=== PATIENT | male | born 1985 | race American Indian/Alaskan Native ===

== ENCOUNTER 2019-09-13 14:21 | Inpatient (IN) | payer MEDICAID ==
[2019-09-13] MEDS ORDERED: Acetaminophen 325 MG Tab PO PRN (16:37)
[2019-09-13] MEDS ORDERED: Sodium Chloride 0.9% 10 ML Syringe FLUSH PRN (16:37)
[2019-09-13] MEDS: Potassium Chloride 10 MEQ Tab.ER PO SCH (18:31)
[2019-09-13] MEDS: Enoxaparin 40 MG/0.4 ML Syringe SUBCUT SCH (18:31)
[2019-09-13] MEDS: Meropenem 1 GM SDV IVPUSH SCH (18:32)
--- NOTE | 2019-09-13 19:29 | PCM.HP.2 ---
H&P History of Present Illness - General Date of Service: 09/13/19 Admit Problem/Dx: Admission Diagnosis/Problem Admission Diagnosis/Problem Bacteremia Source of Information: Patient, Old Records History Limitations: Reports: No Limitations - History of Present Illness Initial Comments - Free Text/Narative: Pt transferred here from [facility] to [facility] for continued IV antibiotics via picc line. He was treated for pneumonia and sepsis while at [facility]. He has chronic back pain, Lupus, and Type II diabetes that he is currently on no meds for. He has open sores that have had skin grafts on the back of each leg. He states that these are from a spider bite that became infected and then abscessed and not healed. He does follow with plastic surgeon for the skin grafts. He refuses to allow me to remove these and evaluate them. He does ambulate with a cane due to his chronic back pain. Onset of Symptoms: Reports: Gradual Duration of Symptoms: Reports: Chronic Location: Reports: Chest, Lower Extremity, Left, Lower Extremity, Right - Related Data Allergies/Adverse Reactions: Allergies Allergy/AdvReac Type Severity Reaction Status Date / Time No Known Allergies Allergy Verified 09/13/19 19:27 Home Medications: Home Meds . [Unable to Verify Home Med List] 09/13/19 [History] Past Medical History HEENT History: Reports: Impaired Vision Cardiovascular History: Reports: None Respiratory History: Reports: Pneumonia, Recurrent, TB Other Respiratory History: States "I'm over the TB now.". acute respiratory failure. Gastrointestinal History: Reports: GERD, Inflammatory Bowel Disease, Other (See Below) Other Gastrointestinal History: fatty liver and enlarged liver. intestinal TB. Elevated LFT Genitourinary History: Reports: Renal Disease Musculoskeletal History: Reports: Arthritis, RA, SLE, Other (See Below) Other Musculoskeletal History: Affects legs and joints. Hard to walk. Neurological History: Reports: None Psychiatric History: Reports: Addiction Endocrine/Metabolic History: Reports: Diabetes, Type II Hematologic History: Reports: Anemia, Blood Transfusion(s) Immunologic History: Reports: Immunosuppression, Other (See Below) Other Immunologic History: Lupus Oncologic (Cancer) History: Reports: None Dermatologic History: Reports: None, Other (See Below) (Has open wounds that have had skin grafts to the back of both lower extremities.) - Infectious Disease History Infectious Disease History: Reports: Chicken Pox, TB (Has history of Intestinal TB and rspiratory TB. Was on meds for 9 months when they were discontinued due to elevated LFT's. He has had 2 clear AFB sputum cultures and needs to have 3rd here to clear completely.) - Past Surgical History Head Surgeries/Procedures: Reports: None HEENT Surgical History: Reports: None Male Surgical History: Reports: None Endocrine Surgical History: Reports: None Neurological Surgical History: Reports: None Musculoskeletal Surgical History: Reports: None Oncologic Surgical History: Reports: None Dermatological Surgical History: Reports: Skin Graft (to the back of both legs. Has had 3 total.) Social & Family History - Family History Family Medical History: Noncontributory - Tobacco Use Smoking Status *Q: Former Smoker - Caffeine Use Caffeine Use: Reports: Coffee, Soda, Tea - Living Situation & Occupation Living situation: Reports: Single, with Family (lives with sister near [place]. ) Occupation: Unemployed H&P Review of Systems - Review of Systems: Review Of Systems: See Below General: Denies: Fever, Chills HEENT: Reports: No Symptoms Pulmonary: Denies: Shortness of Breath, Cough Cardiovascular: Denies: Chest Pain Gastrointestinal: Reports: No Symptoms Genitourinary: Reports: No Symptoms Musculoskeletal: Reports: Back Pain, Joint Pain, Muscle Stiffness Skin: Reports: Wound (posterior legs bilaterally that he refuses to allow me to look at tonight.) Psychiatric: Reports: No Symptoms Neurological: Reports: No Symptoms Exam - Exam Exam: See Below - Vital Signs Vital Signs: Last Vital Signs Temp 98.8 F 09/13/19 16:37 Pulse 87 09/13/19 16:37 Resp 18 09/13/19 16:37 BP 98/54 L 09/13/19 16:37 Pulse Ox 99 09/13/19 16:37 Weight: 150 lb 11.2 oz - Exam Quality Assessment: No: Supplemental Oxygen General: Alert, Oriented, Cooperative HEENT: EACs Clear, Mucosa Moist & [place], Posterior Pharynx Clear Neck: Supple, Trachea Midline Lungs: Clear to Auscultation, Normal Respiratory Effort Cardiovascular: Regular Rate, Regular Rhythm GI/Abdominal Exam: Normal Bowel Sounds, Soft, Non-Tender, No Organomegaly Extremities: Normal Range of Motion, No Pedal Edema, Normal Capillary Refill, Other (dressing to posterior legs bilaterally that he refuses to take dressings off and examine.) Skin: Warm, Dry, Intact Neuro Extensive - Mental Status: Alert, Oriented x3 Psychiatric: Alert - Problem List (1) Pneumonia SNOMED Code(s): 549443439 ICD Code: J18.9 - PNEUMONIA, UNSPECIFIED ORGANISM Status: Acute Priority : High Current Visit: Yes Qualifiers: Pneumonia type: due to group B Streptococcus Laterality: bilateral Lung location: lower lobe of lung Qualified Code(s): J15.3 - Pneumonia due to streptococcus, group B (2) Elevated liver enzymes SNOMED Code(s): 688172735 ICD Code: R74.8 - ABNORMAL LEVELS OF OTHER SERUM ENZYMES Status: Chronic Priority: Medium Current Visit: Yes (3) History of systemic lupus erythematosus (SLE) SNOMED Code(s): 296555980 ICD Code: M32.9 - SYSTEMIC LUPUS ERYTHEMATOSUS, UNSPECIFIED Status: Chronic Priority: Low Current Visit: Yes (4) Low back pain SNOMED Code(s): 246187250 ICD Code: M54.5 - LOW BACK PAIN Status: Chronic Priority: Medium Current Visit: Yes Qualifiers: Chronicity: acute Back pain laterality: midline Sciatica presence: without sciatica Qualified Code(s): M54.5 - Low back pain (5) Lupus SNOMED Code(s): 721981445 ICD Code: M32.9 - SYSTEMIC LUPUS ERYTHEMATOSUS, UNSPECIFIED Status: Chronic Current Visit: Yes (6) Open wounds involving multiple regions of lower extremity SNOMED Code(s): 778589553 ICD Code: S81.809A - UNSPECIFIED OPEN WOUND, UNSPECIFIED LOWER LEG, INIT ENCNTR Status: Acute Priority: High Current Visit: Yes (7) Pulmonary TB SNOMED Code(s): 266034232 ICD Code: A15.0 - TUBERCULOSIS OF LUNG Status: Chronic Priority: Low Current Visit: Yes Problem List Initiated/Reviewed/Updated: Yes Orders Last 24hrs: Active Orders 24 hr Category Date Time Status Patient Status [ADT] Routine ADT 09/13/19 16:37 Active Up ad Yudi [RC] .PRN Care 09/13/19 16:37 Active Vital Signs [RC] 0800,2000 Care 09/13/19 16:37 Active PT Evaluation and Treatment [CONS] Routine Cons 09/13/19 16:37 Active Regular Diet [DIET] Diet 09/13/19 Dinner Active AFB STAIN WITH CULTURE Routine Lab 09/13/19 16:45 Ordered Acetaminophen [Tylenol] Med 09/13/19 16:37 Active 650 mg PO Q4H PRN Enoxaparin [Lovenox] Med 09/13/19 18:00 Active 40 mg SUBCUT Q24H Heparin Sodium [Heparin Lock Flush 100 Units/ML] Med 09/13/19 18:18 Active 300 units FLUSH ASDIRECTED PRN Meropenem [Merrem] Med 09/13/19 18:00 Active 2 gm IVPUSH Q8H Pantoprazole [ProTONIX] Med 09/14/19 07:00 Active 40 mg PO DAILY@0700 Potassium Chloride [Klor-Con 10] Med 09/13/19 17:30 Active 20 meq PO BIDMEALS Sodium Chloride 0.9% [Saline Flush] Med 09/13/19 16:37 Active 10 ml FLUSH ASDIRECTED PRN oxyCODONE Med 09/13/19 19:06 Ordered 5 mg PO Q6H PRN predniSONE Med 09/14/19 12:00 Active 20 mg PO DAILY@1200 Saline Lock Insert [OM.PC] Routine Oth 09/13/19 16:37 Ordered Resuscitation Status Routine Resus Stat 09/13/19 16:37 Ordered Medication Orders Acetaminophen (Tylenol) 650 mg PO Q4H PRN PRN Reason: Pain (Mild 1-3)/fever Enoxaparin Sodium (Lovenox) 40 mg SUBCUT Q24H [facility] Last Admin: 09/13/19 18:31 Dose: 40 mg Heparin Sodium (Porcine) (Heparin Lock Flush 100 Units/Ml) 300 units FLUSH ASDIRECTED PRN PRN Reason: flush picc line Meropenem (Merrem) 2 gm IVPUSH Q8H [facility] Stop: 09/20/19 18:01 Last Admin: 09/13/19 18:32 Dose: 2 gm Oxycodone HCl (Oxycodone) 5 mg PO Q6H PRN PRN Reason: Pain Pantoprazole Sodium (Protonix) 40 mg PO DAILY@0700 [facility] Potassium Chloride (Klor-Con 10) 20 meq PO BIDMEALS [facility] Last Admin: 09/13/19 18:31 Dose: 20 meq Prednisone (Prednisone) 20 mg PO DAILY@1200 [facility] Sodium Chloride (Saline Flush) 10 ml FLUSH ASDIRECTED PRN PRN Reason: Keep Vein Open Assessment/Plan Comment:: Pt is admitted to swing bed status for additional 7 days of IV antibiotics and dressing changes. Pt was accepted in transfer by Dr. Hopkins and he agrees with orders.
[2019-09-13] MEDS ORDERED: Ibuprofen 200 MG Tab PO PRN (19:35)
[2019-09-13] MEDS ORDERED: Temazepam 15 MG Cap PO PRN (19:37)
[2019-09-13] MEDS: oxyCODONE 5 MG Tab PO PRN (19:51)
[2019-09-13] MEDS: Cholecalciferol (Vitamin D3) 25 MCG Tab PO SCH (21:12)
[2019-09-13] MEDS: traZODone 50 MG Tab PO SCH (21:14)
[2019-09-13] MEDS: Gabapentin 300 MG Cap PO SCH (21:14)
[2019-09-14] MEDS: Meropenem 1 GM SDV IVPUSH SCH ×3 (01:40→18:09)
[2019-09-14] MEDS: Pantoprazole 40 MG Tab.CR PO SCH (06:27)
[2019-09-14] MEDS: Multivitamin Tab PO SCH (08:08)
[2019-09-14] MEDS: Sulfamethoxazole/Trimethoprim 800-160 MG Tab PO SCH (08:08)
[2019-09-14] MEDS: Magnesium Chloride 64 MG Tab.ER PO SCH ×2 (08:09→16:53)
[2019-09-14] MEDS: Gabapentin 300 MG Cap PO SCH ×3 (08:09→19:59)
[2019-09-14] MEDS: traZODone 50 MG Tab PO SCH (08:09)
[2019-09-14] MEDS: Potassium Chloride 10 MEQ Tab.ER PO SCH ×2 (08:09→16:53)
[2019-09-14] MEDS: Ferrous Sulfate 324 MG Tab.EC PO SCH (08:12)
[2019-09-14] MEDS: Ascorbic Acid 500 MG Tab PO SCH (08:12)
[2019-09-14] MEDS: oxyCODONE 5 MG Tab PO PRN ×2 (10:57→16:54)
[2019-09-14] MEDS: predniSONE 20 MG Tab PO SCH (10:59)
[2019-09-14] MEDS: Enoxaparin 40 MG/0.4 ML Syringe SUBCUT SCH (18:08)
[2019-09-14] MEDS: Cholecalciferol (Vitamin D3) 25 MCG Tab PO SCH (19:59)
[2019-09-15] MEDS: Meropenem 1 GM SDV IVPUSH SCH ×3 (02:00→17:53)
[2019-09-15] MEDS: Magnesium Chloride 64 MG Tab.ER PO SCH ×2 (08:25→17:52)
[2019-09-15] MEDS: Potassium Chloride 10 MEQ Tab.ER PO SCH ×2 (08:25→17:52)
[2019-09-15] MEDS: Pantoprazole 40 MG Tab.CR PO SCH (08:25)
[2019-09-15] MEDS: Multivitamin Tab PO SCH (08:26)
[2019-09-15] MEDS: oxyCODONE 5 MG Tab PO PRN ×2 (08:26→18:03)
[2019-09-15] MEDS: traZODone 50 MG Tab PO SCH (08:26)
[2019-09-15] MEDS: Gabapentin 300 MG Cap PO SCH ×3 (08:26→19:31)
[2019-09-15] MEDS: predniSONE 20 MG Tab PO SCH (11:59)
[2019-09-15] MEDS: Enoxaparin 40 MG/0.4 ML Syringe SUBCUT SCH (18:00)
[2019-09-15] MEDS: Cholecalciferol (Vitamin D3) 25 MCG Tab PO SCH (19:31)
[2019-09-16] MEDS: Meropenem 1 GM SDV IVPUSH SCH ×3 (02:03→17:56)
[2019-09-16] MEDS: Gabapentin 300 MG Cap PO SCH ×3 (08:15→20:25)
[2019-09-16] MEDS: Potassium Chloride 10 MEQ Tab.ER PO SCH ×2 (08:15→17:37)
[2019-09-16] MEDS: Pantoprazole 40 MG Tab.CR PO SCH (08:15)
[2019-09-16] MEDS: Multivitamin Tab PO SCH (08:16)
[2019-09-16] MEDS: Magnesium Chloride 64 MG Tab.ER PO SCH ×2 (08:16→17:38)
[2019-09-16] MEDS: traZODone 50 MG Tab PO SCH (08:16)
[2019-09-16] MEDS: oxyCODONE 5 MG Tab PO PRN ×2 (08:16→20:25)
[2019-09-16] MEDS: Ascorbic Acid 500 MG Tab PO SCH (08:20)
[2019-09-16] MEDS: Ferrous Sulfate 324 MG Tab.EC PO SCH (08:22)
[2019-09-16] MEDS: predniSONE 20 MG Tab PO SCH (11:55)
[2019-09-16] MEDS: Enoxaparin 40 MG/0.4 ML Syringe SUBCUT SCH (17:38)
[2019-09-16 19:01] LABS: CHLORIDE,CL 103 mEq/L (98-106); SODIUM,NA 137 mEq/L (136-145)
--- NOTE | 2019-09-16 19:35 | PCM.SN ---
- Free Text/Narrative Note: RN told me the patient just now told her that he had a bloody stool here on Tuesday. None today. Vitals are stable. Ordered labs. His hgb is baseline and so are rest of his labs except potassium. His potassium is elevated, stopped this until PCP redraws labs repeat.
[2019-09-16] MEDS: Cholecalciferol (Vitamin D3) 25 MCG Tab PO SCH (20:25)
[2019-09-17] MEDS: Meropenem 1 GM SDV IVPUSH SCH ×3 (01:41→17:30)
[2019-09-17] MEDS: Pantoprazole 40 MG Tab.CR PO SCH (06:49)
[2019-09-17] MEDS: Multivitamin Tab PO SCH (07:32)
[2019-09-17] MEDS: Gabapentin 300 MG Cap PO SCH ×3 (07:33→19:36)
[2019-09-17] MEDS: Magnesium Chloride 64 MG Tab.ER PO SCH ×2 (07:33→17:30)
[2019-09-17] MEDS: traZODone 50 MG Tab PO SCH (07:36)
[2019-09-17] MEDS: oxyCODONE 5 MG Tab PO PRN ×2 (07:45→19:40)
[2019-09-17] MEDS: Sulfamethoxazole/Trimethoprim 800-160 MG Tab PO SCH (08:48)
[2019-09-17] MEDS: predniSONE 20 MG Tab PO SCH (12:10)
[2019-09-17] MEDS: Enoxaparin 40 MG/0.4 ML Syringe SUBCUT SCH (17:31)
[2019-09-17] MEDS: Cholecalciferol (Vitamin D3) 25 MCG Tab PO SCH (19:36)
[2019-09-18] MEDS: Meropenem 1 GM SDV IVPUSH SCH ×3 (02:20→23:26)
[2019-09-18] MEDS: Pantoprazole 40 MG Tab.CR PO SCH (06:35)
[2019-09-18 07:51] LABS: CHLORIDE,CL 104 mEq/L (98-106); SODIUM,NA 138 mEq/L (136-145)
[2019-09-18] MEDS: Magnesium Chloride 64 MG Tab.ER PO SCH ×2 (07:55→18:40)
[2019-09-18] MEDS: Multivitamin Tab PO SCH (07:55)
[2019-09-18] MEDS: oxyCODONE 5 MG Tab PO PRN ×2 (07:56→23:28)
[2019-09-18] MEDS: Gabapentin 300 MG Cap PO SCH ×3 (07:57→23:28)
[2019-09-18] MEDS: traZODone 50 MG Tab PO SCH (07:58)
[2019-09-18] MEDS: Ascorbic Acid 500 MG Tab PO SCH (09:20)
[2019-09-18] MEDS: Ferrous Sulfate 324 MG Tab.EC PO SCH (09:20)
[2019-09-18] MEDS: predniSONE 20 MG Tab PO SCH (13:19)
[2019-09-18] MEDS: Enoxaparin 40 MG/0.4 ML Syringe SUBCUT SCH (18:40)
[2019-09-18] MEDS: Cholecalciferol (Vitamin D3) 25 MCG Tab PO SCH (23:27)
[2019-09-19] MEDS: Meropenem 1 GM SDV IVPUSH SCH ×4 (06:18→23:37)
[2019-09-19] MEDS: Pantoprazole 40 MG Tab.CR PO SCH (06:19)
[2019-09-19] MEDS: Magnesium Chloride 64 MG Tab.ER PO SCH ×2 (07:33→17:16)
[2019-09-19] MEDS: traZODone 50 MG Tab PO SCH (07:34)
[2019-09-19] MEDS: Gabapentin 300 MG Cap PO SCH ×3 (07:34→19:35)
[2019-09-19] MEDS: Multivitamin Tab PO SCH (07:34)
[2019-09-19] MEDS: Sulfamethoxazole/Trimethoprim 800-160 MG Tab PO SCH (09:03)
[2019-09-19] MEDS: oxyCODONE 5 MG Tab PO PRN ×2 (09:11→21:02)
[2019-09-19] MEDS: predniSONE 20 MG Tab PO SCH (11:21)
[2019-09-19] MEDS: Enoxaparin 40 MG/0.4 ML Syringe SUBCUT SCH (17:22)
[2019-09-19] MEDS: Cholecalciferol (Vitamin D3) 25 MCG Tab PO SCH (19:34)
[2019-09-20] MEDS: Pantoprazole 40 MG Tab.CR PO SCH (06:48)
[2019-09-20 07:38] VITALS: BP 109/58; PULSE 83
[2019-09-20] MEDS: Gabapentin 300 MG Cap PO SCH (08:03)
[2019-09-20] MEDS: Magnesium Chloride 64 MG Tab.ER PO SCH (08:03)
[2019-09-20] MEDS: Meropenem 1 GM SDV IVPUSH SCH (08:04)
[2019-09-20] MEDS: traZODone 50 MG Tab PO SCH (08:04)
[2019-09-20] MEDS: Multivitamin Tab PO SCH (08:04)
[2019-09-20] MEDS: Ascorbic Acid 500 MG Tab PO SCH (08:08)
[2019-09-20] MEDS: Ferrous Sulfate 324 MG Tab.EC PO SCH (08:08)
[2019-09-20] MEDS: oxyCODONE 5 MG Tab PO PRN (08:19)
--- NOTE | 2019-09-20 22:09 | PCM.DCSUM1 ---
Discharge Summary - Hospital Course Free Text/Narrative:: Patient admitted swing bed from [facility] for ongoing IV antibiotics via PICC line. He has been treated for pneumonia and sepsis and requires further IV therapy. He has been also dealing with cellulitis due to spider bite from March. He developed abscess in his legs and are currently not yet healed. Has open sores to the back of each leg, has had previous skin grafts. Is following a plastic surgeon for these. He has a history of chronic back pain, Lupus and type II diabetes but was not taking meds for that. On admit, patient has bandages to both legs, refuses to unwrap for provider to evaluate. Diagnosis: Stroke: No Modified Corinne Scale: No Symptoms at All Modified Corinne Scale Score: 0 - Discharge Data Discharge Date: 09/20/19 Discharge Disposition: Home, Self-Care 01 Condition: Fair - Referral to Home Health Primary Care Physician: Tate Parish NP - Patient Summary/Data Complications: none Consults: Consultations 09/13/19 16:37 PT Evaluation and Treatment [CONS] Routine Hospital Course: Patient was admitted for IV antibiotics for pneumonia and sepsis. Also dealing with open wounds to both legs due to non healing from insect bite in March. Has had skin grafts but still open. Bandages intact, refuses to remove today to evaluate prior to discharge. See nurses notes. Lung sounds clear today. No cough. Was seen in follow up at [facility] yesterday, advised may stop antibiotics after dose today and remove PICC line prior to discharge. He will follow up with plastic surgeon in October. Will see [facility] provider in . [facility] next week. Was started on multiple new meds at [facility]. Will continue those on discharge for the next 5 days and be refilled by PCP at that time. See discharge meds. - Patient Instructions Diet: Usual Diet as Tolerated Activity: As Tolerated Other/Special Instructions: Follow up with Dr. Simmons in October as scheduled. Continue [facility] for wound care. Moira at 1 pm on the at [facility]. Will need meds refilled at that point - Discharge Plan *PRESCRIPTION DRUG MONITORING PROGRAM REVIEWED*: No *COPY OF PRESCRIPTION DRUG MONITORING REPORT IN PATIENT TIBURCIO: No Prescriptions/Med Rec: Ascorbic Acid [Vitamin C] 500 mg PO Q48H #30 tablet Cholecalciferol (Vitamin D3) [Vitamin D3] 50 mcg PO BEDTIME #30 tablet Ferrous Sulfate 324 mg PO Q48H #30 tab.ec Gabapentin [Neurontin] 600 mg PO TID #90 cap Magnesium Chloride [Mag-64] 64 mg PO BIDMEALS #60 tab.er Midodrine 2.5 mg PO TIDMEALS #90 oxyCODONE 5 mg PO Q6H PRN #20 tablet PRN Reason: Pain (Severe 7-10) Pantoprazole [ProTONIX] 40 mg PO DAILY@0700 #30 tab.cr Potassium Chloride [Klor-Con 10] 20 meq PO BIDMEALS #60 tab.er predniSONE 20 mg PO DAILY@1200 #5 tablet Sulfamethoxazole/Trimethoprim [Septra DS] 1 tab PO MoWeFr@0900 #30 tablet Home Medications: Home Meds Ascorbic Acid [Vitamin C] 500 mg PO Q48H #30 tablet 09/20/19 [Rx] Cholecalciferol (Vitamin D3) [Vitamin D3] 50 mcg PO BEDTIME #30 tablet 09/20/19 [Rx] Ferrous Sulfate 324 mg PO Q48H #30 tab.ec 09/20/19 [Rx] Gabapentin [Neurontin] 600 mg PO TID #90 cap 09/20/19 [Rx] Magnesium Chloride [Mag-64] 64 mg PO BIDMEALS #60 tab.er 09/20/19 [Rx] Midodrine 2.5 mg PO TIDMEALS #90 09/20/19 [Rx] Pantoprazole [ProTONIX] 40 mg PO DAILY@0700 #30 tab.cr 09/20/19 [Rx] Potassium Chloride [Klor-Con 10] 20 meq PO BIDMEALS #60 tab.er 09/20/19 [Rx] Sulfamethoxazole/Trimethoprim [Septra DS] 1 tab PO MoWeFr@0900 #30 tablet [Rx] oxyCODONE 5 mg PO Q6H PRN #20 tablet 09/20/19 [Rx] predniSONE 20 mg PO DAILY@1200 #5 tablet 09/20/19 [Rx] Patient Handouts: Systemic Lupus Erythematosus, Adult - Discharge Summary/Plan Comment DC Time >30 min.: No - General Info Date of Service: 09/20/19 Admission Dx/Problem (Free Text: Admission Diagnosis/Problem Admission Diagnosis/Problem Bacteremia Functional Status: Reports: Pain Controlled, Tolerating Diet, Ambulating ( ambulates with cane) - Review of Systems General: Reports: Weakness, Fatigue, Malaise. Denies: Fever HEENT: Reports: No Symptoms Pulmonary: Denies: Shortness of Breath, Cough Cardiovascular: Denies: Chest Pain, Edema, Lightheadedness Gastrointestinal: Denies: Abdominal Pain, Nausea, Vomiting Genitourinary: Reports: No Symptoms Musculoskeletal: Reports: Back Pain Skin: Reports: Other (wounds to bilateral legs) Neurological: Reports: Weakness - Patient Data Vitals - Most Recent: Last Vital Signs Temp 97.7 F 09/20/19 07:37 Pulse 83 09/20/19 07:37 Resp 14 09/20/19 07:37 BP 109/58 L 09/20/19 07:37 Pulse Ox 100 09/20/19 07:37 Weight - Most Recent: 146 lb 9.6 oz Med Orders - Current: Current Medications Discontinued Medications Acetaminophen (Tylenol) 650 mg PO Q4H PRN PRN Reason: Pain (Mild 1-3)/fever Last Admin: 09/19/19 06:32 Dose: 650 mg Ascorbic Acid (Vitamin C) 500 mg PO Q48H [facility] Last Admin: 09/20/19 08:08 Dose: 500 mg Cholecalciferol (Vitamin D3) 50 mcg PO BEDTIME [facility] Last Admin: 09/19/19 19:34 Dose: 50 mcg Enoxaparin Sodium (Lovenox) 40 mg SUBCUT Q24H [facility] Last Admin: 09/19/19 17:22 Dose: Not Given Ferrous Sulfate (Ferrous Sulfate) 324 mg PO Q48H [facility] Last Admin: 09/20/19 08:08 Dose: 324 mg Gabapentin (Neurontin) 600 mg PO TID [facility] Last Admin: 09/20/19 08:03 Dose: 600 mg Heparin Sodium (Porcine) (Heparin Lock Flush 100 Units/Ml) 300 units FLUSH ASDIRECTED PRN PRN Reason: flush picc line Last Admin: 09/20/19 08:08 Dose: 300 units Ibuprofen (Motrin) 800 mg PO Q8H PRN PRN Reason: Pain (moderate 4-6) Magnesium Chloride (Mag-64) 64 mg PO BIDMEALS [facility] Last Admin: 09/20/19 08:03 Dose: 64 mg Meropenem (Merrem) 2 gm IVPUSH Q8H [facility] Stop: 09/20/19 18:01 Last Admin: 09/19/19 06:18 Dose: 2 gm Meropenem (Merrem) 2 gm IVPUSH Q8H [facility] Stop: 09/21/19 00:01 Last Admin: 09/20/19 08:04 Dose: 2 gm Multivitamins/Minerals/Vitamin C (Tab-A-Jose) 1 tab PO DAILY [facility] Last Admin: 09/20/19 08:04 Dose: 1 tab Midodrine 5 Mg Tab 0 mg PO TIDMEALS [facility] Last Admin: 09/20/19 08:06 Dose: 2.5 mg Oxycodone HCl (Oxycodone) 5 mg PO Q6H PRN PRN Reason: Pain (severe 7-10) Last Admin: 09/20/19 08:19 Dose: 5 mg Pantoprazole Sodium (Protonix) 40 mg PO DAILY@0700 [facility] Last Admin: 09/20/19 06:48 Dose: 40 mg Potassium Chloride (Klor-Con 10) 20 meq PO BIDMEALS [facility] Last Admin: 09/16/19 17:37 Dose: 20 meq Prednisone (Prednisone) 20 mg PO DAILY@1200 [facility] Last Admin: 09/19/19 11:21 Dose: 20 mg Sodium Chloride (Saline Flush) 10 ml FLUSH ASDIRECTED PRN PRN Reason: Keep Vein Open Temazepam (Restoril) 15 mg PO BEDTIME PRN PRN Reason: Sleep Trazodone HCl (Trazodone) 50 mg PO DAILY [facility] Last Admin: 09/20/19 08:04 Dose: 50 mg Trimethoprim/Sulfamethoxazole (Septra Ds) 1 tab PO MoWeFr@0900 [facility] Stop: 09/24/19 09:01 Last Admin: 09/19/19 09:03 Dose: 1 tab - Exam General: Reports: Alert, Oriented HEENT: Reports: Mucous Membr. Moist/[place] Neck: Reports: Supple Lungs: Reports: Clear to Auscultation, Normal Respiratory Effort Cardiovascular: Reports: Regular Rate, Regular Rhythm GI/Abdominal Exam: Normal Bowel Sounds, Soft, Non-Tender Extremities: No Pedal Edema Skin: Reports: Warm, Dry Wound/Incisions: Reports: Dressing Dry and Intact Neurological: Reports: No New Focal Deficit
== END 2019-09-20 10:20 | disposition home or self-care (01) | DRG 871 ==
LOC: UNDOADMIN 14:21 → CC.MS 14:21
PROVIDERS: ADMIT Physician Assistant Medical; ATTEND Family Medicine
DX: A41.9 Sepsis, unspecified organism (principal); J15.3 Pneumonia due to streptococcus, group B; L02.416 Cutaneous abscess of left lower limb; L02.415 Cutaneous abscess of right lower limb; L03.116 Cellulitis of left lower limb; L03.115 Cellulitis of right lower limb; A15.0 Tuberculosis of lung; S81.802A Unspecified open wound, left lower leg, initial encounter; S81.801A Unspecified open wound, right lower leg, initial encounter; G89.29 Other chronic pain; M19.90 Unspecified osteoarthritis, unspecified site; K21.9 Gastro-esophageal reflux disease without esophagitis; E11.9 Type 2 diabetes mellitus without complications; D64.9 Anemia, unspecified; R74.8 Abnormal levels of other serum enzymes; M32.9 Systemic lupus erythematosus, unspecified; M54.5 Low back pain; Z87.891 Personal history of nicotine dependence
CPT/HCPCS: 36415; 80053; 85025; 97110-GP; 97161-GP; A9270-GY; J1642; J1650; J2185

== ENCOUNTER 2025-08-13 17:18 | Emergency (ER) | payer MEDICAID ==
[2025-08-13 17:22] VITALS: BP 106/75; PULSE 118
[2025-08-13] MEDS: oxyCODONE ER 10 MG TAB.ER PO ONE (18:04)
[2025-08-13] MEDS: methylPREDNISolone Sodium Succinate 40 MG/1 ML SDV IM ONE (18:12)
== END 2025-08-13 19:25 | disposition home or self-care (01) ==
LOC: CC.ED 17:18
DX: M54.9 Dorsalgia, unspecified (principal); I10 Essential (primary) hypertension; E78.00 Pure hypercholesterolemia, unspecified; K21.9 Gastro-esophageal reflux disease without esophagitis; E11.9 Type 2 diabetes mellitus without complications; Z87.891 Personal history of nicotine dependence; Z79.899 Other long term (current) drug therapy
CPT/HCPCS: 96372; 99283; A9270-GY; J2919

== ENCOUNTER 2025-09-10 15:16 | Emergency (ER) | payer MEDICAID ==
[2025-09-10 15:53] VITALS: BP 99/55; PULSE 113
[2025-09-10] MEDS: Ondansetron 4 MG/2 ML SDV IVPUSH STA (16:04)
[2025-09-10 16:14] LABS: BASOPHILS ABSOLUTE AUTO 0.02 10^3/uL (0.00-0.50); BASOPHILS PERCENT AUTO 0.2 % (0-1); EOSINOPHILS ABSOLUTE AUTO 0.05 10^3/uL (0.00-1.50); EOSINOPHILS PERCENT AUTO 0.6 % (0-6); IMMATURE GRAN ABSOLUTE AUTO 0.02 10^3/uL (0.00-0.49); IMMATURE GRAN PERCENT AUTO 0.2 % (0.0-4.9); LYMPHOCYTES ABSOLUTE AUTO 1.85 10^3/uL (0.60-5.00); LYMPHOCYTES PERCENT AUTO 21.7 % (24-44); MONOCYTES ABSOLUTE AUTO 0.66 10^3/uL (0.00-1.50); MONOCYTES PERCENT AUTO 7.7 % (0-10); NEUTROPHILS ABSOLUTE AUTO 5.93 x10^3/uL (1.80-8.00); NEUTROPHILS PERCENT AUTO 69.6 % (41-71); PLATELET COUNT,PLT 204 10^3/uL (150-400); RED BLOOD CELL COUNT 3.14 x10^6/uL (4.50-6.00); WHITE BLOOD CELL COUNT,WBC 8.5 10^3/uL (4.0-11.0)
[2025-09-10 16:22] LABS: APPEARANCE,URINE CLEAR (CLEAR); GLUCOSE,URINE NEGATIVE (NEGATIVE); OCCULT BLOOD,URINE TRACE-INTACT (NEGATIVE)
[2025-09-10 16:34] LABS: EPITHELIAL CELLS,URINE OCCASIONAL /HPF (NOT SEEN)
[2025-09-10 16:35] LABS: ALANINE AMINOTRANSFERASE,ALT 24 U/L (12-78); AMPHETAMINES,URINE POSITIVE (NEGATIVE); ASPARTATE AMNIOTRANSFERASE,AST 26 U/L (15-37); BARBITURATES,URINE NEGATIVE (NEGATIVE); BILIRUBIN TOTAL 0.3 mg/dL (0.0-1.0); BLOOD UREA NITROGEN,BUN 15 mg/dL (7-18); CARBON DIOXIDE,CO2 25 mmol/L (21-32); CHLORIDE,CL 100 mEq/L (98-106); CREATININE 0.7 mg/dL (0.7-1.3); EST CRCL DRUG DOSING (CG) 115.87 mL/min; GLUCOSE RANDOM 87 mg/dL (75-99); MDMA (ECSTASY), URINE NEGATIVE (NEGATIVE); METHAMPHETAMINES,URINE POSITIVE (NEGATIVE); OPIATES,URINE NEGATIVE (NEGATIVE); OXYCODONE,URINE NEGATIVE (NEGATIVE); PHENCYCLIDINE,URINE NEGATIVE (NEGATIVE); POTASSIUM,K 3.4 mEq/L (3.5-5.0); PROTEIN TOTAL,TP 5.6 g/dL (6.4-8.2); SODIUM,NA 135 mEq/L (136-145); TCA,URINE NEGATIVE (NEGATIVE)
[2025-09-10 16:38] LABS: SEDIMENTATION RATE MANUAL > 140 mm/hr (0-15)
[2025-09-10 16:43] LABS: ESTIMATED GFR 122 mL/min (>=60); ETHANOL BLOOD MEDICAL < 3 mg/dL (0-3)
[2025-09-10 16:50] LABS: CORONAVIRUS COVID-19 NAA NEGATIVE (NEGATIVE); INFLUENZA A NAA NEGATIVE (NEGATIVE); INFLUENZA B NAA NEGATIVE (NEGATIVE); RESPIRATORY SYNCYTIAL VIR NAA NEGATIVE (NEGATIVE)
[2025-09-10] MEDS: methylPREDNISolone Sodium Succinate 125 MG/2 ML SDV IVPUSH STA (16:59)
== END 2025-09-10 17:40 | disposition home or self-care (01) ==
LOC: CC.ED 15:16
DX: M32.9 Systemic lupus erythematosus, unspecified (principal); F15.10 Other stimulant abuse, uncomplicated; I10 Essential (primary) hypertension; E78.00 Pure hypercholesterolemia, unspecified; E11.9 Type 2 diabetes mellitus without complications; Z79.899 Other long term (current) drug therapy
CPT/HCPCS: 36415; 71045; 80053; 80305-QW; 80307; 81001; 83605; 83735; 84484; 85025; 85651; 85730; 86140; 87040; 87637; 93005; 93010; 96374; 96375; 99284; 99284-25; J2405; J2919; J7040